=== PATIENT | male | born 1965 | race Caucasian/White ===

== ENCOUNTER 2017-11-26 05:38 | Outpatient (CLI) | payer BC ==
[~2017-11-26] VITALS: Ht 177.8 cm; Wt 111.1 kg
[~2017-11-26 05:38] MED LIST: ESOM20SU PO
[2017-11-26] MEDS ORDERED: LOSA25TA21 PO (08:45)
[2017-11-26] MEDS ORDERED: KRIL1CAP18 PO (08:45)
[2017-11-26] MEDS ORDERED: MULT-35 PO (08:45)
[2017-11-26] MEDS ORDERED: CHOL200025 PO (08:45)
[2017-11-26] MEDS ORDERED: UBID100C17 PO (08:45)
[2017-11-26] MEDS ORDERED: CYAN250014 PO (08:45)
== END 2017-11-26 08:50 ==
LOC: PREOP 05:38
PROVIDERS: ATTEND Internal Medicine
DX: Z01.818 Encounter for other preprocedural examination (principal); Z12.11 Encounter for screening for malignant neoplasm of colon

== ENCOUNTER 2017-12-03 06:59 | Day surgery (SDC) | payer BC ==
--- NOTE | 2017-11-26 06:58 | HISTORY AND PHYSICAL ---
DATE OF SERVICE: COLONOSCOPY HISTORY AND PHYSICAL HISTORY OF PRESENT ILLNESS: The patient is a 52-year-old white male referred for screening colonoscopy by Dr. Ríos. He does report one grandmother diagnosed with colon cancer around the age of 80. He is not aware of any other family history for colon cancer or polyps. He reports that he feels well and denies any problems with melena, bright red blood per rectum, weight change, abdominal pain or bowel habit change. PAST MEDICAL HISTORY: Significant for hypertension with no known history of vascular disease. He has had a past history of gastroesophageal reflux, but currently after weight loss, he is no longer having to take Nexium on a regular basis, but just as needed. He denies dysphagia or epigastric pain. PAST SURGICAL HISTORY: He had abdominal wall hernia repair as a child. SOCIAL HISTORY: He is employed with no past smoking history and rare past alcohol consumption. FAMILY HISTORY: Other than his grandmother, nobody with colon cancer. Mother is living at age 78 with a history of coronary artery bypass grafting at the age of 68. Father secondary to myelodysplastic syndrome at the age of 74. REVIEW OF SYSTEMS: CONSTITUTIONAL: He denies night sweats, chills, fever or weight change. RESPIRATORY: He denies shortness of breath, wheezing, dyspnea on exertion or history of asthma. CARDIOVASCULAR: He denies dyspnea on exertion, orthopnea, PND, pedal edema, palpitations or history of cardiovascular intervention. GASTROINTESTINAL: As noted in the HPI. PHYSICAL EXAMINATION: GENERAL: Reveals a pleasant overweight white male, in no acute distress. VITAL SIGNS: Weight was 249.2 pounds. Blood pressure 138/76, heart rate 72 and regular, respiratory rate 16, nonlabored. HEENT: Unremarkable. Sclerae are nonicteric. NECK: Revealed no JVD, adenopathy or bruits. CHEST: Clear. CARDIOVASCULAR: Revealed regular rate and rhythm without murmur, S3 or S4. ABDOMEN: Soft, supple without mass, organomegaly or tenderness. Bowel sounds are positive in all 4 quadrants. EXTREMITIES: Reveal no cyanosis, clubbing or edema. ASSESSMENT/PLAN: The patient is set up for screening colonoscopy on 12/03. Prep instructions with Suprep kit were given and rationale for screening colonoscopy was discussed. With review of his electronic medical record, 45 minutes of face to face care time was spent with another 15 minutes of staff time in going over prep instructions and setting up colonoscopy. I thank you for the referral of this pleasant gentleman. Job ID: [id number] DocumentID: [id number] Dictated Date: 11/24/2017 17:02:10 Rental Manager Date: 11/24/2017 18:44:43 Dictated By: DELL SOLIS MD
[~2017-12-03] VITALS: Ht 177.8 cm; Wt 111.1 kg
[~2017-12-03 06:59] MED LIST changes: +CHOL200025 PO; +CYAN250014 PO; +KRIL1CAP18 PO; +LOSA25TA21 PO; +MULT-35 PO; +UBID100C17 PO
--- OUTSIDE RECORDS SUMMARY | 2017-12-03 07:02 | XMS REPORT | Continuity of Care Document ---
Author Author [facility] Organization [facility] Address Unknown Phone Unavailable Allergies Active Description Code Type Severity Reaction Onset Reported/Identified Relationship to Patient Clinical Status Yes No Known Drug Allergies [id number] Drug Allergy Unknown N/A 11/26/2017 Medications There is no data. Problems Date Dx Coded Attending Type Code Diagnosis Diagnosed By 12/18/2013 TRAE CRAWFORD, ROBBI Cedeno Ot 300.00 ANXIETY STATE NOS 12/18/2013 TRAE CARWFORD, ROBBI Cedeno Ot 401.9 HYPERTENSION NOS 12/18/2013 TRAE CRAWFORD, ROBBI Cedeno Ot 723.1 CERVICALGIA 11/26/2017 DELL SOLIS MD Ot Z01.818 ENCOUNTER FOR OTHER PREPROCEDURAL EXAMIN 11/26/2017 DELL SOLIS MD Ot Z12.11 ENCOUNTER FOR SCREENING FOR MALIGNANT NE 11/29/2017 DELL SOLIS MD Ot Z01.818 ENCOUNTER FOR OTHER PREPROCEDURAL EXAMIN 11/29/2017 DELL SOLIS MD Ot Z12.11 ENCOUNTER FOR SCREENING FOR MALIGNANT NE Procedures There is no data. Results There is no data. Encounters ACCT No. Visit Date/Time Discharge Status Pt. Type Provider Facility Loc./Unit Complaint [id number] 11/26/2017 05:38:00 11/26/2017 08:50:00 DIS Outpatient DELL SOLIS MD [facility] PREOP COLONOSCOPY [id number] 12/18/2013 06:54:00 12/18/2013 07:26:00 DIS Emergency ROBBI LARKIN MD [facility] ER NECK PAIN, HEAD PRESSURE, SHAKEY [id number] 12/03/2017 08:00:00 PEN Preadmit DELL SOLIS MD [facility] ENDO SCREENING
[2017-12-03] MEDS ORDERED: 1/2 NS IV SOLUTION 1,000 ML IV STA (07:09)
[2017-12-03] MEDS ORDERED: LIDOCAINE JELLY 2% (XYLOCAINE) 5 ML TUBE MM PRN (07:15)
[2017-12-03 07:31] VITALS: BP 144/88
[2017-12-03] MEDS: fentaNYL INJECTION 100 MCG/2 ML AMP IVP PRN ×2 (08:00→08:13)
[2017-12-03] MEDS: MIDAZOLAM 2 MG/2 ML (VERSED) VIAL IVP PRN ×2 (08:05→08:19)
[2017-12-03] MEDS ORDERED: MIDAZOLAM 2 MG/2 ML (VERSED) VIAL ONE (08:18)
[2017-12-03 08:45] VITALS: BP 118/80
--- NOTE | 2017-12-03 08:46 | Pre-Op Note & Conscious Sedat ---
Pre-Operative Progress Note H&P Reviewed The H&P was reviewed, patient examined and no changes noted. Date H&P Reviewed: Dec 03, 2017 Time H&P Reviewed: 07:40 Conscious Sedation Pre-Proced ASA Class: 2 Airway Mallampati Classification: ([facility] appropriate class) I. II. III, IV Lungs Heart ASA score ASA 1: a normal healthy patient ASA 2: a patient with a mild systemic disease (mid diabetes, controlled hypertension, obesity ASA 3: a patient with a severe systemic disease that limits activity (angina , COPD, prior Myocardial infarction) ASA 4: a patient with an incapacitating disease that is a constant threat to life (CHF, renal failure) ASA 5: a moribund patient not expected to survive 24 hrs. (ruptured aneurysm) ASA 6: a declared brain patient whose organs are being harvested. For emergent operations, add the letter E after the classification Grade 3 Sedation Plan: Analgesia, Amnesia, Plan communicated to team members, Discussed options with patient/fam, Discussed risks with patient/fam Note The patient is an appropriate candidate to undergo the planned procedure, sedation, and anesthesia. The patient immediately re-assessed prior to indication. DELL SOLIS MD Dec 03, 2017 08:46
[2017-12-03 09:25] VITALS: BP 110/82
[2017-12-03 09:28] VITALS: BP 110/82
--- NOTE | 2017-12-03 13:36 | OPERATIVE REPORT ---
DATE OF SERVICE: COLONOSCOPY SUMMARY REFERRING PHYSICIAN: Sakina Ríos DO INDICATION FOR THE PROCEDURE: Screening colonoscopy. The patient was placed in the left lateral decubitus position. Prior to undergoing colonoscopy, digital rectal evaluation was performed. Anal sphincter tone was normal and the perianal reflex was intact. The prostate was normal in size, anodular, nontender digital inspection. No abnormalities were noted on digital inspection of the anal canal or distal rectal vault. The colonoscope was then inserted into the rectum and under direct visualization advanced to the cecum. The cecum was identified by identification of the ileocecal valve and the cecal strap as well as appendiceal orifice. Photographic documentation was obtained. A careful inspection was made as the colonoscope was withdrawn. FINDINGS: There was no evidence for internal or external hemorrhoids. The rectum was unremarkable. Several small sigmoid diverticula were present with haustral hypertrophy, but no evidence for diverticulitis. Two diminutive sigmoid polyps were noted in the 2 to 3 mm size range, one in the mid sigmoid and the other in the proximal sigmoid colon. Both were biopsied and ablated with a hot forceps with no blood loss. The descending colon, splenic flexure, transverse colon, hepatic flexure, ascending colon and cecum were unremarkable. ASSESSMENT: 1. Minimal diverticular disease without evidence for diverticulitis confined to the sigmoid colon. 2. Two diminutive hyperplastic appearing polyps were noted in the sigmoid colon, both biopsied and ablated with no subsequent blood loss. As long as there are no surprises on histopathology report, we would advocate consideration for repeat screening colonoscopy in 10 years.The Pt's mother does report her mother was diagnoses with colon cancer in her 80's with no other reported family history for colon cancer. Her screenong colons have been normal per her report. I thank you for the referral of this pleasant gentleman. Job ID: [id number] DocumentID: [id number] Dictated Date: 12/03/2017 08:57:52 Turfgrass Technician Date: 12/03/2017 13:35:47 Dictated By: MD ALISSA RODRIGUEZ
== END 2017-12-03 09:29 | disposition home or self-care (01) ==
LOC: ENDO 06:59
PROVIDERS: ATTEND Internal Medicine
DX: Z12.11 Encounter for screening for malignant neoplasm of colon (principal); K63.5 Polyp of colon; K57.20 Diverticulitis of large intestine with perforation and abscess without bleeding; I10 Essential (primary) hypertension; Z80.0 Family history of malignant neoplasm of digestive organs

== ENCOUNTER 2019-03-22 05:47 | Outpatient (CLI) | payer BC ==
[~2019-03-22] VITALS: Ht 177.8 cm; Wt 111.1 kg
[~2019-03-22 05:47] MED LIST changes: -LOSA25TA21 PO; +LOSA25TA41 PO
[2019-03-22] MEDS ORDERED: LOSA100T57 PO (10:47)
[2019-03-22] MEDS ORDERED: MAGN250T13 PO (10:47)
[2019-03-22] MEDS ORDERED: MULT-974 PO (10:47)
--- NOTE | 2019-03-22 15:22 | HISTORY AND PHYSICAL ---
DATE OF SERVICE: 03/22/2019 EGD HISTORY AND PHYSICAL HISTORY OF PRESENT ILLNESS: The patient is a 53-year-old white male who referred by Dr. Ríos for diagnostic EGD evaluation. He reports that he has been having daily burning epigastric discomfort that last anywhere from 30 minutes to 2 hours. It is somewhat improved by Mylanta. He reported 3 to 4 weeks ago he had some loose stools that were darker in color was not sure as to whether or not there was a tarry consistency, but they were rather fowl/different smelling. He reportedly had a CBC done and his hemoglobin was 12, which was down 2 grams per his report from the CBC done earlier in the year. He has had no further melanotic stools. The burning does not usually wake him up at night, does get a little better with Mylanta and food as long as there is nothing ascitic in it will temporary alleviates his symptoms. If there is anything ascetic like tomato sauce will immediately make it worse. He is not aware of any past history of peptic ulcer disease. I performed a screening colonoscopy on him in November 2017, at which time he had minimal diverticular disease confined to the sigmoid colon with a hyperplastic polyps removed from the sigmoid colon. FAMILY HISTORY: Mother was diagnosed with he believes to be colon cancer in her 80s. She also has history of peptic ulcer disease and believe she was H. pylori positive. Mother is still living. Father at age of 68 with complications from myelodysplastic anemia. PAST SURGICAL HISTORY: He reports no past surgical history. SOCIAL HISTORY: He is employed with no current smoking history and social alcohol intake. He was a previous smoker, but quit over 5 years ago. REVIEW OF SYSTEMS: CONSTITUTIONAL: He denies any change in weight, night sweats, chills or fever. PULMONARY: He has had no cough, chest pain or shortness of breath. CV: He denies palpitations, presyncope, syncope or chest pain. GASTROINTESTINAL: As noted in the HPI. PHYSICAL EXAMINATION: GENERAL: Reveals a pleasant overweight white male in no acute distress, 247.4 pounds. He is down 1.6 pounds from his office weight in November 2017. VITAL SIGNS: Blood pressure 126/92, heart rate 72 and regular. HEENT: Unremarkable. There is no evidence for scleral icterus, no conjunctival pallor is noted. NECK: Revealed no JVD, adenopathy or bruits. CHEST: Clear to auscultation. CARDIOVASCULAR: Reveals regular rate and rhythm without murmur, S3 or S4. ABDOMEN: Soft, supple without mass or organomegaly. There is mild epigastric discomfort to palpation without rebound or guarding. No bruits are noted. EXTREMITIES: Reveal no cyanosis, clubbing or edema. ASSESSMENT AND PLAN: Further evaluation of anemia likely due to GI bleed and epigastric pain. The patient is being set up for EGD evaluation. He is to continue to abstain from aspirin and nonsteroidal medication with p.r.jeff Atkinson and schedule for the 03/24/2019. Job ID: [id number] DocumentID: [id number] Dictated Date: 03/22/2019 14:53:31 [employer]co Developer Date: 03/22/2019 15:21:33 Dictated By: DELL SOLIS MD
== END 2019-03-22 10:51 | disposition home or self-care (01) ==
LOC: PREOP 05:47
PROVIDERS: ATTEND Internal Medicine
DX: Z01.818 Encounter for other preprocedural examination (principal)

== ENCOUNTER 2019-03-24 07:47 | Day surgery (SDC) | payer BC ==
[~2019-03-24] VITALS: Ht 177.8 cm; Wt 108.9 kg
[~2019-03-24 07:47] MED LIST changes: +LOSA100T57 PO; +MAGN250T13 PO; +MULT-974 PO
[2019-03-24 08:00] VITALS: BP 140/95
[2019-03-24] MEDS ORDERED: D5 LR IV SOLUTION 1,000 ML IV PRN (08:15)
[2019-03-24] MEDS ORDERED: MIDAZOLAM 2 MG/2 ML (VERSED) VIAL IVP ONE (08:15)
[2019-03-24] MEDS ORDERED: HURRICAINE EXT TUBE (BENZOCAINE) XX PRN (08:15)
[2019-03-24] MEDS ORDERED: fentaNYL INJECTION 100 MCG/2 ML AMP IVP ONE (08:15)
[2019-03-24] MEDS ORDERED: LIDOCAINE JELLY 2% 6 ML SYRINGE MM PRN (08:15)
--- OUTSIDE RECORDS SUMMARY | 2019-03-24 08:33 | XMS REPORT | Continuity of Care Document ---
Author Organization Unknown Address Unknown Allergies Active Description Code Type Severity Reaction Onset Reported/Identified Relationship to Patient Clinical Status Yes No Known Drug Allergies [id number] Drug Allergy Unknown N/A 11/26/2017 Medications There is no data. Problems Date Dx Coded Attending Type Code Diagnosis Diagnosed By 12/18/2013 TRAE CRAWFORD, ROBBI Cedeno Ot 300.00 ANXIETY STATE NOS 12/18/2013 TRAE CRAWFORD, ROBBI T Ot 401.9 HYPERTENSION NOS 12/18/2013 TRAE CRAWFORD, ROBBI Cedeno Ot 723.1 CERVICALGIA 11/26/2017 DELL SOLIS MD Ot Z01.818 ENCOUNTER FOR OTHER PREPROCEDURAL EXAMIN 11/26/2017 DELL SOLIS MD Ot Z12.11 ENCOUNTER FOR SCREENING FOR MALIGNANT NE 11/29/2017 DELL SOLIS MD Ot Z01.818 ENCOUNTER FOR OTHER PREPROCEDURAL EXAMIN 11/29/2017 DELL SOLIS MD Ot Z12.11 ENCOUNTER FOR SCREENING FOR MALIGNANT NE 12/03/2017 DELL SOLIS MD Ot I10 ESSENTIAL (PRIMARY) HYPERTENSION 12/03/2017 DELL SOLIS MD Ot K57.20 DVTRCLI OF LG INT W PERFORATION AND ABSC 12/03/2017 DELL SOLIS MD Ot K63.5 POLYP OF COLON 12/03/2017 DELL SOLIS MD Ot Z12.11 ENCOUNTER FOR SCREENING FOR MALIGNANT NE 12/03/2017 DELL SOLIS MD Ot Z80.0 FAMILY HISTORY OF MALIGNANT NEOPLASM OF 12/08/2017 DELL SOLIS MD Ot I10 ESSENTIAL (PRIMARY) HYPERTENSION 12/08/2017 DELL SOLIS MD Ot K57.20 DVTRCLI OF LG INT W PERFORATION AND ABSC 12/08/2017 DELL SOLIS MD Ot K63.5 POLYP OF COLON 12/08/2017 DELL SOLIS MD Ot Z12.11 ENCOUNTER FOR SCREENING FOR MALIGNANT NE 12/08/2017 DELL SOLIS MD Ot Z80.0 FAMILY HISTORY OF MALIGNANT NEOPLASM OF 12/08/2017 DELL SOLIS MD Ot I10 ESSENTIAL (PRIMARY) HYPERTENSION 12/08/2017 DELL SOLIS MD Ot K57.20 DVTRCLI OF LG INT W PERFORATION AND ABSC 12/08/2017 DELL SOLIS MD Ot K63.5 POLYP OF COLON 12/08/2017 DELL SOLIS MD Ot Z12.11 ENCOUNTER FOR SCREENING FOR MALIGNANT NE 12/08/2017 DELL SOLIS MD Ot Z80.0 FAMILY HISTORY OF MALIGNANT NEOPLASM OF 12/08/2017 DELL SOLIS MD Ot I10 ESSENTIAL (PRIMARY) HYPERTENSION 12/08/2017 DELL SOLIS MD Ot K57.20 DVTRCLI OF LG INT W PERFORATION AND ABSC 12/08/2017 DELL SOLIS MD Ot K63.5 POLYP OF COLON 12/08/2017 DELL SOLIS MD Ot Z12.11 ENCOUNTER FOR SCREENING FOR MALIGNANT NE 12/08/2017 DELL SOLIS MD Ot Z80.0 FAMILY HISTORY OF MALIGNANT NEOPLASM OF Procedures There is no data. Results There is no data. Encounters ACCT No. Visit Date/Time Discharge Status Pt. Type Provider Facility Loc./Unit Complaint 05/04/17 03/08/2019 11:24:08 03/08/2019 23:59:59 CLS Outpatient Sakina Ríos [id number] 12/03/2017 06:59:00 12/03/2017 09:29:00 DIS Outpatient DELL SOLIS MD [facility] ENDO SCREENING [id number] 11/26/2017 05:38:00 11/26/2017 08:50:00 DIS Outpatient DELL SOLIS MD [facility] PREOP COLONOSCOPY [id number] 12/18/2013 06:54:00 12/18/2013 07:26:00 DIS Emergency ROBBI LARKIN MD [facility] ER NECK PAIN, HEAD PRESSURE, SHAKEY
[2019-03-24] MEDS ORDERED: MIDAZOLAM 2 MG/2 ML (VERSED) VIAL ONE ×3 (08:48→09:14)
[2019-03-24] MEDS ORDERED: fentaNYL INJECTION 100 MCG/2 ML AMP ONE (08:49)
[2019-03-24] MEDS ORDERED: HURRICAINE EXT TUBE (BENZOCAINE) ONE (08:49)
[2019-03-24] MEDS ORDERED: LIDOCAINE JELLY 2% 6 ML SYRINGE ONE (08:49)
--- NOTE | 2019-03-24 09:44 | Pre-Op Note & Conscious Sedat ---
Pre-Operative Progress Note H&P Reviewed The H&P was reviewed, patient examined and no changes noted. Date H&P Reviewed: March 24, 2019 Time H&P Reviewed: 08:00 Conscious Sedation Pre-Proced ASA Score 2 For ASA 3 and 4: Consider anesthesia and medical clearance. Also, for patients with a history of failed moderate sedation consider anesthesia. Airway Lungs Heart ASA score ASA 1: a normal healthy patient ASA 2: a patient with a mild systemic disease (mid diabetes, controlled hypertension, obesity ASA 3: a patient with a severe systemic disease that limits activity (angina , COPD, prior Myocardial infarction) ASA 4: a patient with an incapacitating disease that is a constant threat to life (CHF, renal failure) ASA 5: a moribund patient not expected to survive 24 hrs. (ruptured aneurysm) ASA 6: a declared brain- patient whose organs are being harvested. For emergent operations, add the letter E after the classification Mallampati Classification Grade 3 Sedation Plan Analgesia, Amnesia, Plan communicated to team members, Discussed options with patient/fam, Discussed risks with patient/fam The patient is an appropriate candidate to undergo the planned procedure, sedation, and anesthesia. The patient immediately re-assessed prior to indication. DELL SOLIS MD March 24, 2019 09:44
[2019-03-24] MEDS ORDERED: ESOM20SU PO (09:47)
[2019-03-24 09:50] VITALS: BP 138/86
[2019-03-24 10:20] VITALS: BP 133/93
--- NOTE | 2019-03-24 11:00 | NUR ---
NEXIUM PRESCRIPTION CALLED INTO PT'S PHARMACY AT [facility].
[2019-03-24 11:10] VITALS: BP 133/93
--- NOTE | 2019-03-24 19:27 | OPERATIVE REPORT ---
DATE OF SERVICE: 03/24/2019 EGD SUMMARY INDICATION FOR THE PROCEDURE: EGD was performed for epigastric pain with a GI bleed and secondary anemia. The patient was placed in left lateral decubitus position. The endoscope was inserted in the oral cavity and under direct visualization, esophagus was intubated. The scope was passed down the esophagus through the stomach and the second portion of the duodenum. Careful inspection was made as the endoscope was withdrawn. The patient tolerated the procedure well. FINDINGS: The posterior hypopharynx, arytenoid aperture and true and false vocal folds were unremarkable. Proximal and mid esophagus were unremarkable. The GE junction was proximally placed at 32 cm secondary to a large hiatal hernia. Approximately 1/3rd of the stomach is present above the level of the diaphragm. There was evidence for diffuse erythema at the Z line with several shallow ulcerations compatible with LA grade B erosive esophagitis. There is no evidence for stricture formation. Biopsies were obtained and submitted for histopathology. No visible evidence to suggest Watts's esophagus was noted. The cardia of the stomach was unremarkable. There was a linear marginal ulceration at the level of the hiatal hernia, I photographed one hematocystic spot was noted with no visible vessel formation. There was no evidence for blood in the upper GI tract. The ulcer was about a mm wide and a cm long. Minimal antral erythema was present. A biopsy was obtained and submitted for Helicobacter. Minimal duodenitis was also noted without evidence for duodenal ulcer disease. The pylorus and pyloric channel were unremarkable. ASSESSMENT AND PLAN: 1. A large hiatal hernia is present with approximately 1/3rd of the stomach being present above the level of the diaphragm with a small secondary marginal ulcer, the most likely cause of this patient's GI bleed. He also however, had LA grade B erosive esophagitis and it was advised that he resume Nexium, which he had been taking over the counter in the past and follow up with Dr. Ríos. To this he can add antacid therapy as needed. Discussed having him try Extra Strength Gaviscon 2 tablets for breakthrough symptoms. He reported past reflux symptoms had resolved due to weight loss, but have returned with weight gain. The patient is well aware of association and his goal is to lose weight again. 2. During the procedure while the patient was in the left lateral decubitus position. He did exhibit airway obstruction. He admits to snoring, sometimes will wake himself up with a gasp at night and reports nonrestorative sleep aggravated. He reports daytime somnolence and he can nap at any time. All factors suspicious for underlying significant obstructive sleep apnea. We did discuss its negative impact on quality of life as well as quantity of life if it is present and moderate or severe in category. He was advised to follow up with Dr. Ríos to discuss further evaluation. I thank you for the referral of this pleasant gentleman. Job ID: [id number] DocumentID: [id number] Dictated Date: 03/24/2019 10:51:23 Food Service Employee Date: 03/24/2019 19:27:11 Dictated By: DELL SOLIS MD MTDD
--- NOTE | 2019-03-28 16:26 | HISTORY AND PHYSICAL ---
DATE OF SERVICE: 03/22/2019 EGD HISTORY AND PHYSICAL HISTORY OF PRESENT ILLNESS: The patient is a 53-year-old white male who referred by Dr. Ríos for diagnostic EGD evaluation. He reports that he has been having daily burning epigastric discomfort that last anywhere from 30 minutes to 2 hours. It is somewhat improved by Mylanta. He reported 3 to 4 weeks ago he had some loose stools that were darker in color was not sure as to whether or not there was a tarry consistency, but they were rather fowl/different smelling. He reportedly had a CBC done and his hemoglobin was 12, which was down 2 grams per his report from the CBC done earlier in the year. He has had no further melanotic stools. The burning does not usually wake him up at night, does get a little better with Mylanta and food as long as there is nothing ascitic in it will temporary alleviates his symptoms. If there is anything ascetic like tomato sauce will immediately make it worse. He is not aware of any past history of peptic ulcer disease. I performed a screening colonoscopy on him in November 2017, at which time he had minimal diverticular disease confined to the sigmoid colon with a hyperplastic polyps removed from the sigmoid colon. FAMILY HISTORY: Mother was diagnosed with he believes to be colon cancer in her 80s. She also has history of peptic ulcer disease and believe she was H. pylori positive. Mother is still living. Father at age of 68 with complications from myelodysplastic anemia. PAST SURGICAL HISTORY: He reports no past surgical history. SOCIAL HISTORY: He is employed with no current smoking history and social alcohol intake. He was a previous smoker, but quit over 5 years ago. REVIEW OF SYSTEMS: CONSTITUTIONAL: He denies any change in weight, night sweats, chills or fever. PULMONARY: He has had no cough, chest pain or shortness of breath. CV: He denies palpitations, presyncope, syncope or chest pain. GASTROINTESTINAL: As noted in the HPI. PHYSICAL EXAMINATION: GENERAL: Reveals a pleasant overweight white male in no acute distress, 247.4 pounds. He is down 1.6 pounds from his office weight in November 2017. VITAL SIGNS: Blood pressure 126/92, heart rate 72 and regular. HEENT: Unremarkable. There is no evidence for scleral icterus, no conjunctival pallor is noted. NECK: Revealed no JVD, adenopathy or bruits. CHEST: Clear to auscultation. CARDIOVASCULAR: Reveals regular rate and rhythm without murmur, S3 or S4. ABDOMEN: Soft, supple without mass or organomegaly. There is mild epigastric discomfort to palpation without rebound or guarding. No bruits are noted. EXTREMITIES: Reveal no cyanosis, clubbing or edema. ASSESSMENT AND PLAN: Further evaluation of anemia likely due to GI bleed and epigastric pain. The patient is being set up for EGD evaluation. He is to continue to abstain from aspirin and nonsteroidal medication with p.r.n. Mylanta and schedule for the 03/24/2019. Job ID: [id number] DocumentID: [id number] Dictated Date: 03/22/2019 14:53:31 Prenatal Teacher Date: 03/22/2019 15:21:33 Dictated By: DELL SOLIS MD <Dictated by DELL SOLIS MD> <Electronically signed by DELL SOLIS MD> 03/24/19 [id number]
== END 2019-03-24 11:10 | disposition home or self-care (01) ==
LOC: ENDO 07:47
PROVIDERS: ATTEND Internal Medicine
DX: K22.10 Ulcer of esophagus without bleeding (principal); K29.80 Duodenitis without bleeding; K44.9 Diaphragmatic hernia without obstruction or gangrene; D64.9 Anemia, unspecified; G47.10 Hypersomnia, unspecified; Z80.0 Family history of malignant neoplasm of digestive organs; Z87.891 Personal history of nicotine dependence
CPT/HCPCS: 88305; 88312; 88342

== ENCOUNTER → 2022-11-19 | Outpatient (CLI) | payer SELFPAY ==
--- NOTE | 2022-11-19 14:47 | Diagnostic Imaging Report ---
INDICATION: Hypertension, family history of heart disease. TECHNIQUE: CT cardiac calcium scoring study performed with noncontrast images of the heart followed by calculation of cardiac calcium score. Dose reduction protocol was used. FINDINGS: Raw data images demonstrate a large hiatal hernia. There is no mediastinal adenopathy. Visualized portions of the lung romero were clear, the entirety of the lungs are not included on the study. CT coronary calcium score demonstrates score of 1.4 in the left main coronary artery with small calcification near the left main origin. There is a small calcification in the mid LAD with a score of 2.6. Total calcium score was 4.0. Score was 0 in the circumflex and right coronary artery. IMPRESSION: Coronary calcium score of 4.01 was calculated, compatible with minimal plaque burden as above. Incidental note is made of a large hiatal hernia. Dictated by: Dictated on workstation # [id number]
== END ==
LOC: RAD 13:45
PROVIDERS: ATTEND Family Medicine
DX: Z13.6 Encounter for screening for cardiovascular disorders (principal); I10 Essential (primary) hypertension; Z82.49 Family history of ischemic heart disease and other diseases of the circulatory system
CPT/HCPCS: 75571

== ENCOUNTER → 2022-12-16 | Outpatient (CLI) | payer BC ==
[2022-12-16 13:46] VITALS: BP 161/78
--- NOTE | 2022-12-16 15:10 | Cardiology Stress Test Report ---
Stress Test Report Date of Procedure/Referring: Date of Procedure: Dec 16, 2022 PCP Sakina Ríos DO Admitting Physician Admitting Physician: Attending Physician: Sakina Ríos DO Indications: CP Baseline Heart Rate: 87 Baseline Blood Pressure: Blood Pressure Systolic: 161 Blood Pressure Diastolic: 78 Baseline EKG: Baseline EKG: NSR Summary/Conclusion: Summary: In summary, the patient started exercising with a baseline heart rate, blood pressure and EKG mentioned above Patient was able to exercise for a total of 6 minutes on Jean-Claude protocol, METs 7.3 Maximum heart rate 146 Maximum blood pressure 211/66 Stress EKG, Minimal nondiagnostic changes Recovery EKG , Return to baseline Conclusion: 1. Good exercise tolerance for a total of 6 minutes on Jean-Claude protocol, 7.3 METs, achieving 88 percent of maximum expected heart rate 2. Minimal nondiagnostic EKG changes with exercise returned to baseline during recovery 3. No arrhythmia was noted 4. Severe hypertensive response to exercise with peak blood pressure 211/66 return to baseline during recovery Copy Copies To 1: SAKINA RÍOS BASHAR J MD Dec 16, 2022 15:10
== END ==
LOC: CARD 12:43
PROVIDERS: ATTEND Family Medicine
DX: I10 Essential (primary) hypertension (principal); R07.9 Chest pain, unspecified
CPT/HCPCS: 93017; C8929; 93306

== ENCOUNTER 2023-03-03 05:56 | Outpatient (CLI) | payer BC ==
[~2023-03-03] VITALS: Ht 175.3 cm; Wt 119.7 kg
[2023-03-03] MEDS ORDERED: ASPI-1238 PO (10:24)
[2023-03-03] MEDS ORDERED: MTP100TCR PO (10:24)
[2023-03-03] MEDS ORDERED: OMEP20TA56 PO (10:24)
[2023-03-03] MEDS ORDERED: ATOR20TA66 PO (10:24)
== END 2023-03-03 10:28 | disposition home or self-care (01) ==
LOC: PREOP 05:56
PROVIDERS: ATTEND Surgery
DX: Z01.818 Encounter for other preprocedural examination (principal)

== ENCOUNTER 2023-03-12 07:11 | Day surgery (SDC) | payer BC ==
--- NOTE | 2023-03-01 09:02 | HISTORY AND PHYSICAL ---
DATE OF SERVICE: 03/12/2023 PANENDOSCOPY HISTORY AND PHYSICAL HISTORY OF PRESENT ILLNESS: The patient is a 56-year-old white male referred for consideration for panendoscopy due to history of iron deficiency anemia. I performed an EGD evaluation on him for iron deficiency anemia in 2019 and reflux symptoms. At that time, he had a moderate hiatal hernia with partial intrathoracic stomach with marginal ulcer the likely bleeding site. He was having a lot of reflux symptoms at that time. He has been taking omeprazole and reports he has had no epigastric discomfort. He has noted no melena or bright red blood per rectum. He reports adequate dietary iron intake. He was started on daily iron and has noted some constipation since doing so over the past week. This last colonoscopy was 5 years ago, at which time he had 2 hyperplastic polyps removed. He has had no bright red blood per rectum. FAMILY HISTORY: Pertinent for colon cancer diagnosed in his mother in her early 80s. She is living in her mid 80s. Father at the age of 68 with complications from myelodysplastic anemia. SOCIAL HISTORY: He is employed with no current smoking history. He had a 15 to 20-pack year history, but quit 10 years ago. Occasional small volume social alcohol intake. REVIEW OF SYSTEMS: CONSTITUTIONAL: Denies night sweats, chills, fever, change in weight. PULMONARY: Denies cough, wheezing or shortness of breath. CARDIOVASCULAR: Denies palpitations, syncope, presyncope or chest pain. GASTROINTESTINAL: As noted in the HPI. PHYSICAL EXAMINATION: GENERAL: Reveals a white male, appeared to be in no acute distress. Mild pallor. VITAL SIGNS: Blood pressure 126/92, heart rate 70 and regular. HEENT: Unremarkable. EXTREMITIES: Revealed no cyanosis, clubbing or edema. ABDOMEN: Soft, supple without mass, organomegaly, or tenderness. ASSESSMENT AND PLAN: The patient is being set up for panendoscopy due to iron deficiency anemia and a previous history of erosive esophagitis and a marginal ulceration due to large hiatal hernia with family history for colon cancer. The patient was advised to discontinue baby aspirin. Continue his other medications now. Prep instructions were given and questions were answered. I thank you for the referral of this pleasant gentleman. Job ID: [id number] DocumentID: [id number] Dictated Date: 02/25/2023 16:02:33 Shell Reprint Operator Date: 02/25/2023 17:49:00 Dictated By: DELL SOLIS MD MTDD
[~2023-03-12] VITALS: Ht 175.3 cm; Wt 119.7 kg
[~2023-03-12 07:11] MED LIST changes: +ASPI-1238 PO; +ATOR20TA66 PO; +MTP100TCR PO; +OMEP20TA56 PO
[2023-03-12] MEDS ORDERED: LACTATED RINGERS 1,000 ML IV STA (07:16)
[2023-03-12 07:20] VITALS: BP 149/99
[2023-03-12] MEDS ORDERED: HURRICAINE EXT TUBE (BENZOCAINE) XX PRN (07:30)
[2023-03-12] MEDS ORDERED: PROPOFOL INJECTION 50 ML IV ONE ×2 (07:50→08:30)
[2023-03-12] MEDS ORDERED: MIDAZOLAM 2 MG/2 ML (VERSED) VIAL ONE (07:50)
--- NOTE | 2023-03-12 08:01 | Pre-Op Note & Conscious Sedat ---
Pre-Operative Progress Note Date H&P Reviewed: Mar 12, 2023 Time H&P Reviewed: 07:45 History & Physical: H&P Reviewed, Patient Examed, No changes noted Pre-Op Diagnosis: screening colon fe deficiency anemia Moderate Sedation PreProcedure ASA Score 2 Airway Lungs Heart ASA score ASA 1: a normal healthy patient ASA 2: a patient with a mild systemic disease (mid diabetes, controlled hypertension, obesity ASA 3: a patient with a severe systemic disease that limits activity (angina, COPD, prior Myocardial infarction) ASA 4: a patient with an incapacitating disease that is a constant threat to life (CHF, renal failure) ASA 5: a moribund patient not expected to survive 24 hrs. (ruptured aneurysm) ASA 6: a declared brain- patient whose organs are being harvested. For emergent operations, add the letter E after the classification Mallampati Classification Grade 2 Sedation Plan Analgesia, Amnesia, Plan communicated to team members, Discussed options with patient/fam, Discussed risks with patient/fam The patient is an appropriate candidate to undergo the planned procedure, sedation, and anesthesia. The patient immediately re-assessed prior to indication. DELL SOLIS MD Mar 12, 2023 08:01
[2023-03-12 08:45] VITALS: BP 122/71
--- NOTE | 2023-03-12 08:49 | Progress Note-Post Operative ---
Post-Procedure Note Physician (s)/Sales And Merchandising Associate (s) Physician DELL SOLIS MD Pre-Procedure Diagnosis Pre-Procedure Diagnosis: screening colon fe deficiency anemia Post-Procedure Diagnosis Post-operative diagnosis: The endoscope was inserted into the oral cavity and under direct visualization the esophagus intubated. The endoscope was passed down the esophagus to stomach and second portion of the duodenum. Careful inspection was made as the endoscope was withdrawn. Findings: The posterior pharynx arytenoid aperture epiglottis and true and false vocal folds were unremarkable to gross inspection. Proximal and midesophagus was unremarkable. The Z-line was approximately placed At 31 cm from the incisor orifice due to large hiatal hernia though with approximately half of the stomach being present above the level of the diaphragm. there was some mild erythema at the Z-line without evidence for erosive esophagitis. Biopsy was obtained and submitted for histopathology there was no overt evidence to suggest Watts's esophagus. The cardia and fundus of the stomach were unremarkable. There is some linear erythema noted in the antrum biopsies obtained and submitted for histopathology and Helicobacter evaluation. Pylorus pyloric channel duodenal bulb and second portion of duodenum were unremarkable with normal villous architecture no visual evidence to suggest blunting was noted. A/P 1. No potential bleeding sites were identified today the patient does have very large hiatal hernia unchanged from last time with about 50% of the stomach being present above the level of diaphragm. There was no evidence for marginal ulceration or erosive esophagitis. No visible evidence to suggest sprue was noted either and no evidence for blood in the upper GI tract. We then proceeded with colonoscopy. Prior to going colonoscopy digital rectal evaluation was performed. Anal sphincter tone was normal and the perianal reflexes intact. The prostate is normal in size a nodular on digital inspection. No abnormalities noted on evaluation of the distal rectal vault or anal canal. The colonoscope was inserted into the rectum and under direct visitation advanced the cecum. The cecum was identified by indication of the ileocecal valve and the cecal strap photograph dictation obtained. Careful suction was made as colonoscope was withdrawn. Quality prep was good. There are no evidence for internal/external hemorrhoids and the rectum was unremarkable.The sigmoid colon and descending colon were unremarkable as well with no evidence of diverticular disease or neoplasia. A 4 mm sessile adenomatous appearing polyp was noted in the splenic flexure was biopsied and ablated and submitted for histopathology with notice of blood loss. Similar polyps were also noted in the proximal transverse colon and mid ascending colon which were biopsied and ablated with no blood loss the cecum was unremarkable. A/P 1. 3 Three 3 to 4 mm polyps were removed via hot forceps today from the splenic flexure proximal transverse colon the mid ascending colon. This is otherwise normal colonoscopy to the cecum. As long as there are no surprises on histopathology would advocate consideration for repeat surveillance colonoscopy in 5 years. Patient was advised to hold aspirin for now and continue proton pump Inhibitor therapy. CC: Dr. Sakina Ríos DO. DELL SOLIS MD Mar 12, 2023 08:49
[2023-03-12 08:50] VITALS: BP 120/59
[2023-03-12 08:55] VITALS: BP 125/74
[2023-03-12 09:18] VITALS: BP 125/74
--- NOTE | 2023-03-12 12:01 | Anesthesia-General Post-Op ---
MAC Patient Condition Mental Status/LOC: Same as Preop Cardiovascular: Satisfactory Nausea/Vomiting: Absent Respiratory: Satisfactory Pain: Controlled Complications: Absent Post Op Complications Complications None Follow Up Care/Instructions Patient Instructions None needed. Anesthesiology Discharge Order Discharge Order Patient is doing well, no complaints, stable vital signs, no apparent adverse anesthesia problems. No complications reported per nursing. AMANUEL BEGUM CRNA Mar 12, 2023 12:01
== END 2023-03-12 09:35 | disposition home or self-care (01) ==
LOC: ENDO 07:11
PROVIDERS: ATTEND Internal Medicine
DX: Z12.11 Encounter for screening for malignant neoplasm of colon (principal); D12.3 Benign neoplasm of transverse colon; D12.2 Benign neoplasm of ascending colon; K63.5 Polyp of colon; K31.89 Other diseases of stomach and duodenum; K57.30 Diverticulosis of large intestine without perforation or abscess without bleeding; K29.50 Unspecified chronic gastritis without bleeding; K20.90 Esophagitis, unspecified without bleeding; D50.9 Iron deficiency anemia, unspecified; K44.9 Diaphragmatic hernia without obstruction or gangrene; E66.9 Obesity, unspecified; Z68.39 Body mass index [BMI] 39.0-39.9, adult; Z87.891 Personal history of nicotine dependence; Z80.0 Family history of malignant neoplasm of digestive organs
CPT/HCPCS: 88305